=== PATIENT | male | born 1960 | race Caucasian/White ===

== ENCOUNTER → 2018-01-24 | Outpatient (CLI) | payer OTHER | END | disposition home or self-care (01) | LOC: CFH 12:59 | PROVIDERS: ATTEND Internal Medicine Cardiovascular Disease | DX: I35.8 Other nonrheumatic aortic valve disorders (principal); I10 Essential (primary) hypertension | CPT/HCPCS: 93306 ==

== ENCOUNTER 2019-01-20 08:36 | Outpatient (CLI) | payer OTHER ==
[~2019-01-20 08:36] MED LIST: ACETAMINOPHEN 500 MG TABLET ONE; ALBUTEROL; ALLO100T30 PO; BUTA-177 PO; CITALOPRAM; DEPAKOTE; DICYCLOMINE; FENOFIBRATE; LOSARTAN; TRAZADONE
== END 2019-01-20 23:59 | disposition home or self-care (01) ==
LOC: CARD 08:36
PROVIDERS: ATTEND Family Medicine
DX: C71.9 Malignant neoplasm of brain, unspecified (principal); G31.09 Other frontotemporal neurocognitive disorder; G47.09 Other insomnia; Z79.899 Other long term (current) drug therapy
CPT/HCPCS: 95886; 95908